=== PATIENT | female | born 1995 | race Caucasian/White ===

== ENCOUNTER 2017-05-03 16:57 | Emergency (ER) | payer OTHER ==
[~2017-05-03] VITALS: Ht 167.6 cm; Wt 65.0 kg
[2017-05-03 17:02] VITALS: BP 111/71; PULSE 87; RESP 14; TEMP 98.4; O2SAT 96
[2017-05-03] MEDS ORDERED: IBUPROFEN 800 MG TAB PO ONE (18:30)
--- NOTE | 2017-05-03 18:56 | PD ---
HPI Chief Complaint: Injury Time Seen by Provider: 18:48 Travel History International Travel<30 days: No Contact w/Intl Traveler<30days: No Traveled to known affect area: No History of Present Illness HPI 21-year-old female presents to emergency Department with complaint of right hand pain and bruising at the fifth metacarpal region or punching a wall yesterday. Reports paresthesias to the right fifth finger, but denies loss of sensation. Reports decreased range of motion of the right fifth finger at the MCP joint secondary to pain. Denies paresthesias, loss of sensation, decreased range of motion to all of the right hand fingers. Has taken Excedrin earlier today for symptom management. Symptoms are mild in severity. No known allergies. Has no other medical complaints. No other modifying factors or associated signs and symptoms. PFSH Social History Tobacco Use: No Allergies-Medications (Allergen,Severity, Reaction): Coded Allergies: No Known Allergies (Unverified , 05/03/17) Reported Meds & Prescriptions Reported Meds & Active Scripts Active Diclofenac Sodium DR (Diclofenac Sodium) 75 Mg Tabdr 75 Mg PO BID Review of Systems Except as stated in HPI: all other systems reviewed are Neg Physical Exam Narrative GENERAL: Well-nourished, well-developed female patient, in no acute distress SKIN: Warm and dry. HEAD: Atraumatic. Normocephalic. EYES: Pupils equal and round. No scleral icterus. No injection or drainage. ENT: Mucosa pink and moist. Airway patent. NECK: Trachea midline. CARDIOVASCULAR: Regular rate. RESPIRATORY: No accessory muscle use. GASTROINTESTINAL: Flat. MUSCULOSKELETAL: Right hand with tenderness on palpation over the fifth metacarpal region; ecchymosis noted to the ventral aspect of the fifth metacarpal area; mild edema noted; right fifth finger with limited range of motion at the MCP joint; sensory intact; fingers pink and warm; less than 3 second cap refill; no obvious deformities noted. No obvious deformities. No clubbing. No cyanosis. No edema. NEUROLOGICAL: Awake and alert. Oriented 3. No obvious cranial nerve deficits. Motor grossly within normal limits. Normal speech. PSYCHIATRIC: Appropriate mood and affect; insight and judgment normal. Data Data Last Documented VS Vital Signs Date Time Temp Pulse Resp B/P (MAP) Pulse Ox O2 Delivery O2 Flow Rate FiO2 05/03/17 19:22 05/03/17 17:02 98.4 87 14 96 Room Air Orders Orders Hand, Complete ([id number]) (05/03/17 18:23) Ibuprofen (Motrin) (05/03/17 18:30) Ed Discharge Order (05/03/17 19:12) MDM Medical Decision Making Medical Screen Exam Complete: Yes Emergency Medical Condition: Yes Medical Record Reviewed: Yes Differential Diagnosis Hand fracture, boxer's fracture, hand sprain Narrative Course 21-year-old female with right hand injury from punching a wall. Ibuprofen administered in the ER. Right hand x-ray ordered. 1899: Report given to Wali Gupta PA-C at change of shift. See his note for final patient disposition. Scripts Diclofenac Sodium DR (Diclofenac Sodium DR) 75 Mg Tabdr 75 MG PO BID, #20 TAB 0 Refills Prov: Jimmy Casillas MD 05/03/17 Zahida Haley May 03, 2017 18:55
--- NOTE | 2017-05-03 19:03 | RADRPT ---
EXAM DATE/TIME: 05/03/2017 18:44 [facility] COMPARISON: No previous studies available for comparison. INDICATIONS : Punched concrete wall last night bruising on lateral hand. MEDICAL HISTORY : None. SURGICAL HISTORY : None. ENCOUNTER: Initial ACUITY: 1 day PAIN SCORE: 0/10 LOCATION: Right hand FINDINGS: Three view examination of the right hand demonstrates no soft tissue swelling, dislocation, or fractu re. The carpal bones appear intact. The interphalangeal and metacarpophalangeal joints are intact. Bony mineralization is normal. CONCLUSION: Normal examination for a patient of this age. Agustin Jose MD on May 03, 2017 at 19:01 Board Certified Radiologist. This report was verified electronically.
--- NOTE | 2017-05-03 19:10 | PD ---
Physical Exam Date Seen by Provider: May 03, 2017 Time Seen by Provider: 19:08 Data Data Last Documented VS Vital Signs Date Time Temp Pulse Resp B/P (MAP) Pulse Ox O2 Delivery O2 Flow Rate FiO2 05/03/17 17:02 98.4 87 14 111/71 (84) 96 Room Air Orders Orders Hand, Complete ([id number]) (05/03/17 18:23) Ibuprofen (Motrin) (05/03/17 18:30) MDM Medical Record Reviewed: Yes Supervised Visit with MANDY: No Interpretation(s) Plan: Negative for acute fracture. No dislocation. No soft tissue swelling. Differential Diagnosis MDM: High Differential diagnoses: Fracture, sprain, strain, dislocation, contusion, neurovascular injury Narrative Course X-rays negative for bony injury. This is hand contusion Diagnosis Primary Impression: Contusion of right hand Qualified Codes: S60.221A - Contusion of right hand, initial encounter Patient Instructions: General Instructions Additional Instruction: Rest. Elevation. Ice. Medications as directed. Follow-up with a medical doctor in one week. Return to the ER for problems. Med/Other Pt SpecificInfo: Prescription(s) given Disposition: 01 DISCHARGE HOME Condition: Stable Wali Gupta May 03, 2017 19:10
[2017-05-03] MEDS ORDERED: DICL75TA PO (19:11)
== END 2017-05-03 19:23 | disposition home or self-care (01) ==
LOC: NEPK 16:57
DX: S60.221A Contusion of right hand, initial encounter (principal); W22.01XA Walked into wall, initial encounter
CPT/HCPCS: 73130; 99283

== ENCOUNTER 2017-07-02 09:41 | Emergency (ER) | payer OTHER ==
[~2017-07-02] VITALS: Ht 167.6 cm; Wt 61.2 kg
[~2017-07-02 09:41] MED LIST: DICL75TA PO
[2017-07-02 10:13] VITALS: BP 132/63; PULSE 82; RESP 16; TEMP 98.3; O2SAT 97
[2017-07-02] MEDS ORDERED: AUGM875T3 PO (10:56)
[2017-07-02] MEDS ORDERED: ERYTOIN10 EACH EYE (10:56)
--- NOTE | 2017-07-02 10:56 | PD ---
HPI Chief Complaint: Skin Problem Time Seen by Provider: 10:47 Travel History International Travel<30 days: No Contact w/Intl Traveler<30days: No Traveled to known affect area: No History of Present Illness HPI 22 -year-old female with bilateral upper eyelid pain, swelling, redness 5 days. She denies visual changes or eye pain. She reports she used a new mascara about a week ago. Symptoms started shortly after. She now has crusting around the lashes. Symptom severity is moderate. No alleviating factors. PFSH Past Medical History Medical History: Denies Significant Hx Depression: Yes Tetanus Vaccination: < 5 Years Influenza Vaccination: No ?: Not LMP: 06/09/17 Past Surgical History Surgical History: No Previous Surgery Social History Alcohol Use: Yes (2-3 X WEEK) Tobacco Use: Yes (1 PPD) Substance Use: No Allergies-Medications (Allergen,Severity, Reaction): Coded Allergies: No Known Allergies (Unverified Adverse Reaction, Unknown, 07/02/17) Reported Meds & Prescriptions Reported Meds & Active Scripts Active No Active Prescriptions or Reported Medications Review of Systems Except as stated in HPI: all other systems reviewed are Neg Physical Exam Narrative GENERAL: Alert female in no distress SKIN: Warm and dry. HEAD: Normocephalic. EYES: No scleral icterus. No injection or drainage. She has bilateral upper lid erythema, swelling localized to the lash margins. There is crusting noted at the base of the lashes. PERRLA. EOMs intact. NECK: Supple, trachea midline. No JVD or lymphadenopathy. CARDIOVASCULAR: Regular rate and rhythm without murmurs, gallops, or rubs. RESPIRATORY: Breath sounds equal bilaterally. No accessory muscle use. Data Data Last Documented VS Vital Signs Date Time Temp Pulse Resp B/P (MAP) Pulse Ox O2 Delivery O2 Flow Rate FiO2 07/02/17 10:13 98.3 82 16 132/63 (86) 97 MDM Medical Decision Making Medical Screen Exam Complete: Yes Emergency Medical Condition: Yes Differential Diagnosis Blepharitis, conjunctivitis, periorbital cellulitis Narrative Course 22-year-old female here with bilateral upper mid erythema, swelling crusting eyelashes approximately 5 days. No ocular involvement. She has normal visual acuity. She has blepharitis Diagnosis Primary Impression: Blepharitis Qualified Codes: H01.001 - Unspecified blepharitis right upper eyelid; H01.004 - Unspecified blepharitis left upper eyelid Referrals: Primary Care Physician Scripts Amoxicillin-Clavulanate (Augmentin) 875-125 Mg Tab 1 TAB PO BID for Infection, #14 TAB 0 Refills Prov: Jasmina Salazar 07/02/17 Erythromycin Opth Oint (Erythromycin Opth Oint) 5 Mg/Gm Oint 1 APPLIC EACH EYE BID for Infection, #1 TUBE 0 Refills Prov: Jasmina Salazar 07/02/17 Disposition: 01 DISCHARGE HOME Condition: Stable Jasmina Salazar Jul 02, 2017 10:56
== END 2017-07-02 11:02 | disposition home or self-care (01) ==
LOC: PHED 09:41 → PHEFT 11:02
DX: H01.001 Unspecified blepharitis right upper eyelid (principal); H01.004 Unspecified blepharitis left upper eyelid; F17.200 Nicotine dependence, unspecified, uncomplicated; Z72.89 Other problems related to lifestyle
CPT/HCPCS: 99284

== ENCOUNTER 2017-08-27 16:08 | Emergency (ER) | payer OTHER ==
[~2017-08-27] VITALS: Ht 167.6 cm; Wt 59.6 kg
[~2017-08-27 16:08] MED LIST changes: +AUGM875T3 PO; -DICL75TA PO; +ERYTOIN10 EACH EYE
[2017-08-27 16:38] VITALS: BP 111/59; PULSE 80; RESP 16; TEMP 98.5; O2SAT 99
--- NOTE | 2017-08-27 16:57 | PD ---
HPI Chief Complaint: Anxiety Time Seen by Provider: 16:42 Travel History International Travel<30 days: No Contact w/Intl Traveler<30days: No Traveled to known affect area: No History of Present Illness HPI The patient is a 22-year-old female who presents to the emergency department for chest pain and anxiety. The patient states she's had several family members within the last several months, she lost a sister several weeks ago and a drunk driving accident. The patient states her last several days she's had intermittent substernal chest pain that feels like a "knot" in her chest. The patient's chest pain started today at 11:45 AM, his been constant, nonradiating, associated with mild shortness of breath. The patient does have a history of anxiety and states she is going to go to [facility] on Tuesday to go back on antidepressants. She does have a history of substance abuse problems in the past with benzodiazepines, however, states clonidine did help with her anxiety in the past. She denies any nausea, vomiting, or diaphoresis. She denies any recent hospitalizations, travel, surgeries, or history of pulmonary embolus a more DVT. She denies any history of blood clotting disorders. She does have a history tobacco use, denies any known history of hypertension, hyperlipidemia, diabetes, coronary artery disease , or early family history for heart disease. [facility] Past Medical History Depression: Yes ?: Not LMP: 08/15/17 Social History Alcohol Use: Yes (2-3 X WEEK) Tobacco Use: Yes (1 PPD) Substance Use: No Allergies-Medications (Allergen,Severity, Reaction): Coded Allergies: No Known Allergies (Unverified Adverse Reaction, Unknown, 08/27/17) Reported Meds & Prescriptions Reported Meds & Active Scripts Active No Active Prescriptions or Reported Medications Review of Systems Except as stated in HPI: all other systems reviewed are Neg General / Constitutional: No: Fever HENT: No: Lightheadedness Cardiovascular: Positive: Chest Pain or Discomfort, No: Diaphoresis, Dyspnea on exertion Respiratory: Positive: Shortness of Breath, No: Pleuritic Pain Gastrointestinal: No: Nausea, Vomiting Musculoskeletal: No: Edema Psychiatric: Positive: Anxiety Physical Exam Narrative GENERAL: Awake, alert, pleasant 22-year-old female who appears her stated age and is in no acute respiratory distress. Slightly anxious. SKIN: Focused skin assessment warm/dry. HEAD: Atraumatic. Normocephalic. EYES: Pupils equal and round. No scleral icterus. No injection or drainage. ENT: No nasal bleeding or discharge. Mucous membranes pink and moist. NECK: Trachea midline. No JVD. CARDIOVASCULAR: Regular rate and rhythm. No murmur appreciated. Heart rate in the 80s. RESPIRATORY: No accessory muscle use. Clear to auscultation. Breath sounds equal bilaterally. GASTROINTESTINAL: Abdomen soft, non-tender, nondistended. No rebound tenderness. MUSCULOSKELETAL: No obvious deformities. No clubbing. No cyanosis. No edema. NEUROLOGICAL: Awake and alert. No obvious cranial nerve deficits. Motor grossly within normal limits. Normal speech. Nonfocal. PSYCHIATRIC: Slightly anxious. Appropriate mood and affect; insight and judgment normal. Data Data Last Documented VS Vital Signs Date Time Temp Pulse Resp B/P (MAP) Pulse Ox O2 Delivery O2 Flow Rate FiO2 08/27/17 17:50 67 17 108/59 (75) 100 Room Air 08/27/17 16:38 98.5 Orders Orders Electrocardiogram (08/27/17 16:50) Ckmb (Isoenzyme) Profile (08/27/17 16:50) Complete Blood Count With Diff (08/27/17 16:50) Comprehensive Metabolic Panel (08/27/17 16:50) Magnesium (Mg) (08/27/17 16:50) Troponin I (08/27/17 16:50) Ecg Monitoring (08/27/17 16:50) Iv Access Insert/Monitor (08/27/17 16:50) Oximetry (08/27/17 16:50) Oxygen Administration (08/27/17 16:50) Sodium Chloride 0.9% Flush (Ns Flush) (08/27/17 17:00) Sodium Chlorid 0.9% 500 Ml Inj (Ns 500 M (08/27/17 17:00) Clonidine (Catapres) (08/27/17 17:00) CKMB (08/27/17 16:57) CKMB% (08/27/17 16:57) Labs Laboratory Tests Test 08/27/17 16:57 White Blood Count 7.1 TH/MM3 Red Blood Count 4.43 MIL/MM3 Hemoglobin 14.1 GM/DL Hematocrit 40.7 % Mean Corpuscular Volume 91.8 FL Mean Corpuscular Hemoglobin 31.8 PG Mean Corpuscular Hemoglobin Concent 34.7 % Red Cell Distribution Width 12.4 % Platelet Count 382 TH/MM3 Mean Platelet Volume 7.6 FL Neutrophils (%) (Auto) 59.5 % Lymphocytes (%) (Auto) 34.3 % Monocytes (%) (Auto) 5.0 % Eosinophils (%) (Auto) 0.6 % Basophils (%) (Auto) 0.6 % Neutrophils # (Auto) 4.3 TH/MM3 Lymphocytes # (Auto) 2.4 TH/MM3 Monocytes # (Auto) 0.4 TH/MM3 Eosinophils # (Auto) 0.0 TH/MM3 Basophils # (Auto) 0.0 TH/MM3 CBC Comment DIFF FINAL Differential Comment Blood Urea Nitrogen 8 MG/DL Creatinine 0.66 MG/DL Random Glucose 73 MG/DL Total Protein 7.1 GM/DL Albumin 3.9 GM/DL Calcium Level 9.0 MG/DL Magnesium Level 2.1 MG/DL Alkaline Phosphatase 99 U/L Aspartate Amino Transf (AST/SGOT) 12 U/L Alanine Aminotransferase (ALT/SGPT) 14 U/L Total Bilirubin 0.8 MG/DL Sodium Level 139 MEQ/L Potassium Level 3.6 MEQ/L Chloride Level 106 MEQ/L Carbon Dioxide Level 28.1 MEQ/L Anion Gap 5 MEQ/L Estimat Glomerular Filtration Rate 111 ML/MIN Total Creatine Kinase 105 U/L Troponin I LESS THAN 0.02 NG/ML MDM Medical Decision Making Medical Screen Exam Complete: Yes Emergency Medical Condition: Yes Medical Record Reviewed: Yes Interpretation(s) EKG reveals normal sinus rhythm with a rate of 77. No ischemic changes or ectopy noted. Laboratory Tests Test 08/27/17 16:57 White Blood Count 7.1 TH/MM3 Red Blood Count 4.43 MIL/MM3 Hemoglobin 14.1 GM/DL Hematocrit 40.7 % Mean Corpuscular Volume 91.8 FL Mean Corpuscular Hemoglobin 31.8 PG Mean Corpuscular Hemoglobin Concent 34.7 % Red Cell Distribution Width 12.4 % Platelet Count 382 TH/MM3 Mean Platelet Volume 7.6 FL Neutrophils (%) (Auto) 59.5 % Lymphocytes (%) (Auto) 34.3 % Monocytes (%) (Auto) 5.0 % Eosinophils (%) (Auto) 0.6 % Basophils (%) (Auto) 0.6 % Neutrophils # (Auto) 4.3 TH/MM3 Lymphocytes # (Auto) 2.4 TH/MM3 Monocytes # (Auto) 0.4 TH/MM3 Eosinophils # (Auto) 0.0 TH/MM3 Basophils # (Auto) 0.0 TH/MM3 CBC Comment DIFF FINAL Differential Comment Blood Urea Nitrogen 8 MG/DL Creatinine 0.66 MG/DL Random Glucose 73 MG/DL Total Protein 7.1 GM/DL Albumin 3.9 GM/DL Calcium Level 9.0 MG/DL Magnesium Level 2.1 MG/DL Alkaline Phosphatase 99 U/L Aspartate Amino Transf (AST/SGOT) 12 U/L Alanine Aminotransferase (ALT/SGPT) 14 U/L Total Bilirubin 0.8 MG/DL Sodium Level 139 MEQ/L Potassium Level 3.6 MEQ/L Chloride Level 106 MEQ/L Carbon Dioxide Level 28.1 MEQ/L Anion Gap 5 MEQ/L Estimat Glomerular Filtration Rate 111 ML/MIN Total Creatine Kinase 105 U/L Troponin I LESS THAN 0.02 NG/ML Differential Diagnosis Differential diagnosis includes ACS, STEMI, pulmonary most, GERD, esophageal spasm, pulmonary embolism, somatization, anxiety disorder. Narrative Course IV was established, labs are drawn and sent, and the patient was placed on cardiac telemetry monitoring and continuous pulse oximetry monitoring. EKG was ordered and interpreted. The patient's heart rate was less than 100 and the patient's oxygen saturation was on her percent on room air, she has no risk factors for pulmonary embolism or DVT. I doubt pulmonary embolism. Troponin/ CPK were sent to lab to evaluate for possible pericarditis/myocarditis. The patient states clonidine as helped with her anxiety in the past, she was administered clonidine 0.1 mg orally. CPK was unremarkable at 105. Troponin is negative. The patient was reassessed at 5:50 PM, her symptoms had improved. Patient has atypical chest pain, history of similar symptoms in the past with anxiety. I will write for when necessary clonidine as needed, she will follow- up is to [place] on Tuesday. Return if symptoms worsen or progress. Diagnosis Primary Impression: Atypical chest pain Additional Impression: Anxiety Patient Instructions: General Instructions Additional Instructions: Please provide the patient a copy of her lab results at discharge. Clonidine as needed. Follow-up at [facility]. Return if symptoms worsen or progress. Med/Other Pt SpecificInfo: Prescription(s) given Scripts Clonidine (Clonidine) 0.1 Mg Tab 0.1 MG PO Q8HR Y for ANXIETY, #10 TAB 0 Refills Prov: Flynn Brambila MD 08/27/17 Disposition: 01 DISCHARGE HOME Condition: Stable Flynn Brambila MD Aug 27, 2017 16:57
[2017-08-27] MEDS ORDERED: SODIUM CHLORIDE 0.9% FLUSH 10 ML FLUSH IVF PRN (17:00)
[2017-08-27] MEDS ORDERED: cloNIDine HCL 0.1 MG TAB PO ONE (17:00)
[2017-08-27] MEDS ORDERED: SODIUM CHLORID 0.9% 500 ML INJ 500 ML IV ONE (17:00)
[2017-08-27 17:25] VITALS: O2SAT 99
[2017-08-27 17:25] LABS: AUTOMATED NEUTROPHIL # 4.3 TH/MM3 (1.8-7.7); BASOPHIL % 0.6 % (0.0-2.0); EOSINOPHIL % 0.6 % (0.0-4.0); HEMATOCRIT 40.7 % (35.0-46.0); HEMOGLOBIN 14.1 GM/DL (11.6-15.3); LYMPH % 34.3 % (9.0-44.0); LYMPHOCYTE # 2.4 TH/MM3 (1.0-4.8); MEAN CELL VOLUME 91.8 FL (80.0-100.0); MEAN CORPUSCULAR HEMOGLOBIN 31.8 PG (27.0-34.0); MEAN CORPUSCULAR HGB CONC 34.7 % (32.0-36.0); MEAN PLATELET VOLUME 7.6 FL (7.0-11.0); MONOCYTE # 0.4 TH/MM3 (0-0.9); NEUT % 59.5 % (16.0-70.0); PLATELET COUNT 382 TH/MM3 (150-450); RED BLOOD COUNT 4.43 MIL/MM3 (4.00-5.30); RED CELL DISTRIBUTION WIDTH 12.4 % (11.6-17.2); WHITE BLOOD COUNT 7.1 TH/MM3 (4.0-11.0)
[2017-08-27 17:36] LABS: CHLORIDE 106 MEQ/L (98-107); SODIUM (NA) 139 MEQ/L (136-145)
[2017-08-27 17:40] LABS: ALBUMIN 3.9 GM/DL (3.4-5.0); BICARBONATE 28.1 MEQ/L (21.0-32.0); BLOOD UREA NITROGEN 8 MG/DL (7-18); GLUCOSE,RANDOM 73 MG/DL (74-106); MAGNESIUM 2.1 MG/DL (1.5-2.5)
[2017-08-27 17:43] LABS: ALT (GPT) 14 U/L (10-53); AST (GOT) 12 U/L (15-37); CREATININE 0.66 MG/DL (0.50-1.00); GLOMERULAR FILTRATION RATE 111 ML/MIN (>89)
[2017-08-27 17:45] LABS: TOTAL BILIRUBIN ADULT 0.8 MG/DL (0.2-1.0); TOTAL PROTEIN 7.1 GM/DL (6.4-8.2)
[2017-08-27 17:46] LABS: ALKALINE PHOSPHATASE 99 U/L (45-117)
[2017-08-27 17:49] LABS: TROPONIN I LESS THAN 0.02 NG/ML (0.02-0.05)
[2017-08-27 17:50] VITALS: BP 108/59; PULSE 67; RESP 17; O2SAT 100
[2017-08-27] MEDS ORDERED: CLON0.1T PO (17:55)
--- NOTE | 2017-08-28 13:18 | EKG ---
Date Performed: 08/27/2017 Time Performed: 17:00:42 PTAGE: 22 years EKG: Sinus rhythm NORMAL ECG NO PREVIOUS TRACING DOCTOR: Erasmo Amaya Interpretating Date/Time 08/28/2017 13:16:30
== END 2017-08-27 18:19 | disposition home or self-care (01) ==
LOC: PHED 16:08
DX: R07.89 Other chest pain (principal); F41.9 Anxiety disorder, unspecified; R06.02 Shortness of breath; Z72.0 Tobacco use
CPT/HCPCS: 80053; 82550; 82552; 83735; 84484; 85025; 93005; 99284; J7040

== ENCOUNTER 2017-10-02 20:18 | Emergency (ER) | payer OTHER ==
[~2017-10-02] VITALS: Ht 167.6 cm; Wt 56.5 kg
[~2017-10-02 20:18] MED LIST changes: -AUGM875T3 PO; +CLON0.1T PO; -ERYTOIN10 EACH EYE
[2017-10-02 20:21] VITALS: BP 115/66; PULSE 86; RESP 20; TEMP 98.4; O2SAT 98
[2017-10-02] MEDS ORDERED: PRENTAB7 PO (20:56)
--- NOTE | 2017-10-02 21:04 | PD ---
HPI Chief Complaint: Flank/Kidney Pain Time Seen by Provider: 20:48 Travel History International Travel<30 days: No Contact w/Intl Traveler<30days: No Traveled to known affect area: No History of Present Illness HPI 22-year-old female , LMP 08/14/17, has not yet received care, here for evaluation of with abdominal cramping. Patient reports occasional right lower quadrant and right flank cramping. She denies vaginal bleeding. No urinary symptoms. She has become nauseous and had one episode of vomiting during this . No fevers. PFSH Past Medical History Bipolar Disorder: Yes Anxiety: Yes Depression: Yes Tetanus Vaccination: Unknown Influenza Vaccination: No ?: LMP: 08/14/17 : 1 Past Surgical History Gynecologic Surgery: Yes (CONE BIOPSY: CERVICAL DYSPLASIA) Social History Alcohol Use: No (QUIT JUN 2017) Tobacco Use: Yes (07/26 PPD) Substance Use: No Allergies-Medications (Allergen,Severity, Reaction): Coded Allergies: No Known Allergies (Unverified Adverse Reaction, Unknown, 10/02/17) Reported Meds & Prescriptions Reported Meds & Active Scripts Active Reported Vitamins Tablet (Pnv No.95/Ferrous Fum/Folic AC) 28 Mg Iron-800 Mcg Tablet 1 Cap PO DAILY Review of Systems Except as stated in HPI: all other systems reviewed are Neg Physical Exam Narrative GENERAL: Well-developed, well-nourished, comfortable, no apparent distress. SKIN: Focused skin assessment warm/dry. No rash. HEAD: Atraumatic. Normocephalic. EYES: Pupils equal and round. No scleral icterus. No injection or drainage. ENT: Mucous membranes pink and moist. NECK: Trachea midline. No JVD. CARDIOVASCULAR: Regular rate and rhythm. RESPIRATORY: No accessory muscle use. Clear to auscultation. Breath sounds equal bilaterally. GASTROINTESTINAL: Abdomen soft, non-tender, nondistended. [employer]: Exam performed in the presence of a female nurse. Normal external genitalia. Normal-appearing cervix. Closed office. Scant/physiologic vaginal discharge. No bleeding. MUSCULOSKELETAL: No obvious deformities. No clubbing. No cyanosis. No edema. No CVA tenderness. NEUROLOGICAL: Awake and alert. No obvious cranial nerve deficits. Motor grossly within normal limits. Normal speech. PSYCHIATRIC: Appropriate mood and affect; insight and judgment normal. Data Data Last Documented VS Vital Signs Date Time Temp Pulse Resp B/P (MAP) Pulse Ox O2 Delivery O2 Flow Rate FiO2 10/02/17 20:21 98.4 86 20 115/66 (82) 98 Orders Orders Beta Hcg (Quant/Titer) (10/02/17 20:54) Complete Blood Count With Diff (10/02/17 20:54) Basic Metabolic Panel (Bmp) (10/02/17 20:54) Us Pelvis (Ques Preg/Ectopic) (10/02/17 ) Urinalysis - C+S If Indicated (10/02/17 20:54) Ed Urine Pregnancytest Poc (10/02/17 20:54) Gc And Chlamydia Pcr (10/02/17 21:41) Wet Prep Profile (10/02/17 21:41) Labs Laboratory Tests Test 10/02/17 20:48 10/02/17 21:05 10/02/17 21:45 Urine Collection Type CLEAN CATCH Urine Color YELLOW Urine Turbidity SL CLOUDY Urine pH 7.0 Urine Specific [place] 1.010 Urine Protein NEG mg/dL Urine Glucose (UA) NEG mg/dL Urine Ketones NEG mg/dL Urine Occult Blood NEG Urine Nitrite NEG Urine Bilirubin NEG Urine Urobilinogen 0.2 MG/DL Urine Leukocyte Esterase NEG Urine WBC 0-2 /hpf Urine Squamous Epithelial Cells > 8 /hpf Urine Amorphous Sediment FEW Microscopic Urinalysis Comment CULT NOT INDICATED White Blood Count 9.1 TH/MM3 Red Blood Count 4.01 MIL/MM3 Hemoglobin 12.8 GM/DL Hematocrit 36.6 % Mean Corpuscular Volume 91.4 FL Mean Corpuscular Hemoglobin 31.9 PG Mean Corpuscular Hemoglobin Concent 34.9 % Red Cell Distribution Width 11.9 % Platelet Count 308 TH/MM3 Mean Platelet Volume 7.5 FL Neutrophils (%) (Auto) 66.6 % Lymphocytes (%) (Auto) 27.2 % Monocytes (%) (Auto) 5.7 % Eosinophils (%) (Auto) 0.2 % Basophils (%) (Auto) 0.3 % Neutrophils # (Auto) 6.1 TH/MM3 Lymphocytes # (Auto) 2.5 TH/MM3 Monocytes # (Auto) 0.5 TH/MM3 Eosinophils # (Auto) 0.0 TH/MM3 Basophils # (Auto) 0.0 TH/MM3 CBC Comment DIFF FINAL Differential Comment Blood Urea Nitrogen 11 MG/DL Creatinine 0.52 MG/DL Random Glucose 80 MG/DL Calcium Level 8.4 MG/DL Sodium Level 136 MEQ/L Potassium Level 3.4 MEQ/L Chloride Level 103 MEQ/L Carbon Dioxide Level 24.4 MEQ/L Anion Gap 9 MEQ/L Estimat Glomerular Filtration Rate 146 ML/MIN Human Chorionic Gonadotropin, Quant 89998 MIU/ML Clue Cells (Wet Prep) NONE SEEN Vaginal Trichomonas (Wet Prep) NONE SEEN Vaginal Yeast (Wet Prep) NONE SEEN MDM Medical Decision Making Medical Screen Exam Complete: Yes Emergency Medical Condition: Yes Differential Diagnosis , ectopic , UTI, pyelonephritis, nephrolithiasis, cystitis, acute intra-abdominal/surgical process unlikely Narrative Course Vital signs show heart rate 86, blood pressure 115/66, pulse ox 98% on room air , oral temperature 98.4F. CBC is unremarkable. BMP is essentially unremarkable. UA is within normal limits, not suggestive of UTI, no bacteriuria. Wet prep is negative for yeast, negative for clue cells, negative for trichomonas. Beta-hCG is 62,800. Pelvic ultrasound: At approximately 11:00 PM at the end of my shift the patient was signed out to Dr. Jones to follow-up with pelvic/ ultrasound and disposition. Diagnosis Primary Impression: Intrauterine Referrals: [facility] 1 week Additional Instructions: Follow-up with an [employer] physician this week. Return to the emergency department for worsening symptoms or any other concerns. Disposition: 01 DISCHARGE HOME Condition: Stable Carlos Manuel Clark MD Oct 02, 2017 21:04
[2017-10-02 21:16] LABS: AUTOMATED NEUTROPHIL # 6.1 TH/MM3 (1.8-7.7); BASOPHIL % 0.3 % (0.0-2.0); EOSINOPHIL % 0.2 % (0.0-4.0); HEMATOCRIT 36.6 % (35.0-46.0); HEMOGLOBIN 12.8 GM/DL (11.6-15.3); LYMPH % 27.2 % (9.0-44.0); LYMPHOCYTE # 2.5 TH/MM3 (1.0-4.8); MEAN CELL VOLUME 91.4 FL (80.0-100.0); MEAN CORPUSCULAR HEMOGLOBIN 31.9 PG (27.0-34.0); MEAN CORPUSCULAR HGB CONC 34.9 % (32.0-36.0); MEAN PLATELET VOLUME 7.5 FL (7.0-11.0); MONO % 5.7 % (0.0-8.0); MONOCYTE # 0.5 TH/MM3 (0-0.9); NEUT % 66.6 % (16.0-70.0); PLATELET COUNT 308 TH/MM3 (150-450); RED BLOOD COUNT 4.01 MIL/MM3 (4.00-5.30); RED CELL DISTRIBUTION WIDTH 11.9 % (11.6-17.2); WHITE BLOOD COUNT 9.1 TH/MM3 (4.0-11.0)
[2017-10-02 21:17] LABS: BILIRUBIN, URINE NEG (NEG); BLOOD, URINE NEG (NEG); GLUCOSE,URINE NEG (NEG); KETONE, URINE NEG (NEG); NITRITE,URINE NEG (NEG); URINE COLOR YELLOW (YELLW/STRAW); URINE LEUKOCYTE ESTERASE NEG (NEG)
[2017-10-02 21:23] LABS: AMORPHOUS SEDIMENT, URINE FEW; SQUAMOUS EPITHELIAL CELL URINE > 8 /hpf (0-5)
[2017-10-02 21:24] LABS: WBC, URINE 0-2 /hpf (0-5)
[2017-10-02 21:27] LABS: CALCIUM 8.4 MG/DL (8.5-10.1)
[2017-10-02 21:28] LABS: BICARBONATE 24.4 MEQ/L (21.0-32.0)
[2017-10-02 21:31] LABS: CREATININE 0.52 MG/DL (0.50-1.00)
[2017-10-02 23:28] VITALS: BP 107/59; PULSE 74; RESP 16; O2SAT 100
--- NOTE | 2017-10-02 23:38 | RADRPT ---
EXAM DATE/TIME: 10/02/2017 22:51 [facility] COMPARISON: No previous studies available for comparison. INDICATIONS : Pelvic pain with . LAB(S): Beta-hC MEDICAL HISTORY : . Bipolar disorder. Depression. Anxiety. SURGICAL HISTORY : Cervical cone biopsy. ENCOUNTER: Initial ACUITY: 1 day PAIN SCORE: 3/10 LOCATION: Bilateral pelvis MEASUREMENTS: UTERUS: 8.5 x 5.9 x 4.3 cm ENDOMETRIAL STRIPE: >20 mm RIGHT OVARY: 2.0 x 1.3 x 1.1 cm LEFT OVARY: 1.7 x 1.2 x 0.8 cm FREE FLUID: No CROWN RUMP LENGTH: 0.8 cm = 6 WKS 5 DAYS FHR: 120 BPM FINDINGS: UTERUS: Single intrauterine gestation is observed. Well-formed gestational sac and yolk sac observed. Strawn-r ump length measures are 0.76 cm which equals 6 weeks 5 days gestational age. heart rate is 120 beats per minute. A small subchorionic hemorrhage is observed. This measures less than [address] dimension. RIGHT OVARY: Ovary contains no mass or significant cystic lesion. LEFT OVARY: Ovary contains no mass or significant cystic lesion. MISCELLANEOUS: No free fluid. CONCLUSION: 1. Single intrauterine gestation. Age by crown-rump length is 6 weeks 5 days. heart rate 120 be ats per minute. 2. Probable tiny subchorionic hemorrhage. Cristobal Segal Jr., MD on October 02, 2017 at 23:33 Board Certified Radiologist. This report was verified electronically.
--- NOTE | 2017-10-02 23:56 | PD ---
Physical Exam Date Seen by Provider: Oct 02, 2017 Time Seen by Provider: 23:00 Narrative Patient signed out to me at [address] Clark, awaiting ultrasound. Disposition based on ultrasound. Laboratory Tests Test 10/02/17 20:48 10/02/17 21:05 10/02/17 21:45 Urine Squamous Epithelial Cells > 8 /hpf (0-5) Calcium Level 8.4 MG/DL (8.5-10.1) Potassium Level 3.4 MEQ/L (3.5-5.1) Human Chorionic Gonadotropin, Quant 23627 MIU/ML (0-5) Last 24 hours Impressions Pelvis Ultrasound 10/02/17 0000 Signed Impressions: Service Date/Time: Monday, October 02, 2017 22:51 - CONCLUSION: 1. Single intrauterine gestation. Age by crown-rump length is 6 weeks 5 days. heart rate 120 beats per minute. 2. Probable tiny subchorionic hemorrhage. Cristobal Segal Jr., MD Ultrasound shows IUP with good heart tones. At this point, plan would be to release her with follow-up to [facility] as previously discussed with Dr. Clark. Return for any worsening in pain, bleeding, and as needed. Plan has been discussed with the patient and she states understanding. Data Data Last Documented VS Vital Signs Date Time Temp Pulse Resp B/P (MAP) Pulse Ox O2 Delivery O2 Flow Rate FiO2 10/02/17 23:28 74 16 107/59 (75) 100 Room Air 10/02/17 20:21 98.4 Orders Orders Beta Hcg (Quant/Titer) (10/02/17 20:54) Complete Blood Count With Diff (10/02/17 20:54) Basic Metabolic Panel (Bmp) (10/02/17 20:54) Us Pelvis (Ques Preg/Ectopic) (10/02/17 ) Urinalysis - C+S If Indicated (10/02/17 20:54) Ed Urine Pregnancytest Poc (10/02/17 20:54) Gc And Chlamydia Pcr (10/02/17 21:41) Wet Prep Profile (10/02/17 21:41) Ed Discharge Order (10/02/17 23:53) Labs Laboratory Tests Test 10/02/17 20:48 10/02/17 21:05 10/02/17 21:45 Urine Collection Type CLEAN CATCH Urine Color YELLOW Urine Turbidity SL CLOUDY Urine pH 7.0 Urine Specific [place] 1.010 Urine Protein NEG mg/dL Urine Glucose (UA) NEG mg/dL Urine Ketones NEG mg/dL Urine Occult Blood NEG Urine Nitrite NEG Urine Bilirubin NEG Urine Urobilinogen 0.2 MG/DL Urine Leukocyte Esterase NEG Urine WBC 0-2 /hpf Urine Squamous Epithelial Cells > 8 /hpf Urine Amorphous Sediment FEW Microscopic Urinalysis Comment CULT NOT INDICATED White Blood Count 9.1 TH/MM3 Red Blood Count 4.01 MIL/MM3 Hemoglobin 12.8 GM/DL Hematocrit 36.6 % Mean Corpuscular Volume 91.4 FL Mean Corpuscular Hemoglobin 31.9 PG Mean Corpuscular Hemoglobin Concent 34.9 % Red Cell Distribution Width 11.9 % Platelet Count 308 TH/MM3 Mean Platelet Volume 7.5 FL Neutrophils (%) (Auto) 66.6 % Lymphocytes (%) (Auto) 27.2 % Monocytes (%) (Auto) 5.7 % Eosinophils (%) (Auto) 0.2 % Basophils (%) (Auto) 0.3 % Neutrophils # (Auto) 6.1 TH/MM3 Lymphocytes # (Auto) 2.5 TH/MM3 Monocytes # (Auto) 0.5 TH/MM3 Eosinophils # (Auto) 0.0 TH/MM3 Basophils # (Auto) 0.0 TH/MM3 CBC Comment DIFF FINAL Differential Comment Blood Urea Nitrogen 11 MG/DL Creatinine 0.52 MG/DL Random Glucose 80 MG/DL Calcium Level 8.4 MG/DL Sodium Level 136 MEQ/L Potassium Level 3.4 MEQ/L Chloride Level 103 MEQ/L Carbon Dioxide Level 24.4 MEQ/L Anion Gap 9 MEQ/L Estimat Glomerular Filtration Rate 146 ML/MIN Human Chorionic Gonadotropin, Quant 86167 MIU/ML Clue Cells (Wet Prep) NONE SEEN Vaginal Trichomonas (Wet Prep) NONE SEEN Vaginal Yeast (Wet Prep) NONE SEEN MDM Medical Record Reviewed: Yes Supervised Visit with MANDY: No Diagnosis Primary Impression: Intrauterine Referrals: [facility] 1 week Additional Instruction: Follow-up with an [facility] physician this week. Return to the emergency department for worsening symptoms or any other concerns. Disposition: 01 DISCHARGE HOME Condition: Stable SoonNicol durant MD Oct 02, 2017 23:56
== END 2017-10-03 00:05 | disposition home or self-care (01) ==
LOC: PHED 20:18
DX: O26.891 Other specified pregnancy related conditions, first trimester (principal); R10.31 Right lower quadrant pain; R11.0 Nausea; Z72.0 Tobacco use
CPT/HCPCS: 76700; 80048; 81001; 84702; 84703; 85025; 87210; 87491; 87591

== ENCOUNTER 2017-11-27 20:51 | Emergency (ER) | payer BC, MEDICAID ==
[~2017-11-27 20:51] MED LIST changes: -CLON0.1T PO; +PRENTAB7 PO
[2017-11-27 21:02] VITALS: BP 113/77; PULSE 105; RESP 18; TEMP 98.4; O2SAT 97
[2017-11-27 21:34] VITALS: PULSE 71
[2017-11-27] MEDS ORDERED: SODIUM CHLOR 0.9% 1000 ML INJ 1,000 ML IV ONE (21:36)
--- NOTE | 2017-11-27 21:53 | PD ---
HPI Chief Complaint: Sales Team Manager Problem/Complaint Time Seen by Provider: 21:36 Travel History International Travel<30 days: No Contact w/Intl Traveler<30days: No Traveled to known affect area: No History of Present Illness HPI The patient is a 22 year old female at 15 weeks gestation who presents to the [facility] emergency department with a history of lower abdominal cramping that she reports has been more persistent over the last 2 days. She reports that she has a follow-up appointment with her [facility] scheduled for , however she became concerned after reading on the Internet that this could be related to a miscarriage. She reports that she has had an initial ultrasound that revealed heart activity. She denies having any vaginal bleeding. She reports that she has had vaginal discharge that is been clear to white in color, however it was slightly darker yesterday. She does not know her blood type. On review of systems otherwise, the patient denies having any known recent fevers, cough or congestion,neck pain, chest pain, shortness of breath,vomiting, diarrhea, urinary symptoms, or neurologic symptoms. [facility] Past Medical History Narrative Medical The patient's past medical history is significant for cervical dysplasia status post cone procedure, history of anxiety disorder, bipolar disorder. Bipolar Disorder: Yes Anxiety: Yes Depression: Yes Diminished Hearing: No Immunizations Current: Yes ?: : 1 Past Surgical History Narrative Surgical The patient's past surgical history is significant for a cone biopsy for cervical dysplasia Gynecologic Surgery: Yes (CONE BIOPSY: CERVICAL DYSPLASIA) Social History Alcohol Use: No (QUIT JUN 2017) Tobacco Use: Yes (1/2 PPD) Substance Use: No Allergies-Medications (Allergen,Severity, Reaction): Coded Allergies: No Known Allergies (Unverified Adverse Reaction, Unknown, 11/27/17) Reported Meds & Prescriptions Reported Meds & Active Scripts Active Macrobid (Nitrofurantoin Monoh/Nitrofur Macro) 100 Mg Cap 100 Mg PO BID Reported Vitamins Tablet (Pnv No.95/Ferrous Fum/Folic AC) 28 Mg Iron-800 Mcg Tablet 1 Cap PO DAILY Review of Systems Except as stated in HPI: all other systems reviewed are Neg General / Constitutional: No: Fever Eyes: No: Visual changes HENT: No: Headaches Cardiovascular: No: Chest Pain or Discomfort Respiratory: No: Shortness of Breath Gastrointestinal: Positive: Abdominal Pain, No: Nausea, Vomiting, Diarrhea Genitourinary: Positive: Pelvic Pain, Discharge, No: Dysuria Musculoskeletal: No: Pain Skin: No Rash Neurologic: No: Weakness Psychiatric: No: Depression Endocrine: No: Polydipsia Hematologic/Lymphatic: No: Easy Bruising Physical Exam Narrative General: The patient is a well-developed well-nourished female in no acute distress. Head and Neck exam: Head is normocephalic atraumatic. Eyes: EOMI, pupils are equal round and reactive to light. Nose: Midline septum with pink mucous membranes Mouth: Dentition unremarkable. Moist mucus membranes. Posterior oropharynx is not erythematous. No tonsillar hypertrophy. Uvula midline. Airway patent. Neck: No palpable lymphadenopathy. No nuchal rigidity. No thyromegaly. Cardiovascular: Regular rate and rhythm without murmurs, gallops, or rubs. Lungs: Clear to auscultation bilaterally. No wheezes, rhonchi, or rales. Abdomen: Soft, without tenderness to palpation in all 4 quadrants of the abdomen. No guarding, rebound, or rigidity. Normal bowel sounds are audible. No tenderness on palpation of McBurney's point. Negative Marr sign. Extremities: No clubbing, cyanosis, or edema. 2+ pulses in all 4 extremities. No calf tenderness on palpation peer Back: No costovertebral angle tenderness to palpation. Neurologic Exam: Grossly nonfocal. Skin Exam: No rash noted. Intact skin that is warm and dry. Gynecologic exam: The patient was placed in the dorsal lithotomy position. Her external genitalia were examined. She had no evidence of rash or lesions. The speculum was placed into her vagina and the cervix was identified. She had a physiologic appearing clear white discharge. No cervical friability. On Bimanual exam: she has no cervical motion tenderness. No adnexal tenderness or prominence noted on palpation. No uterine tenderness, however uterus is palpated to be enlarged consistent with . Data Data Last Documented VS Vital Signs Date Time Temp Pulse Resp B/P (MAP) Pulse Ox O2 Delivery O2 Flow Rate FiO2 11/27/17 21:34 71 11/27/17 21:02 98.4 18 113/77 (89) 97 Orders Orders Beta Hcg (Quant/Titer) (11/27/17 21:36) Complete Blood Count With Diff (11/27/17 21:36) Comprehensive Metabolic Panel (11/27/17 21:36) Gc And Chlamydia Pcr (11/27/17 21:36) Complete Rh (11/27/17 21:36) Wet Prep Profile (11/27/17 21:36) Urinalysis - C+S If Indicated (11/27/17 21:36) Iv Access Insert/Monitor (11/27/17 21:36) Ecg Monitoring (11/27/17 21:36) Sodium Chlor 0.9% 1000 Ml Inj (Ns 1000 M (11/27/17 21:36) Ed Urine Pregnancytest Poc (11/27/17 21:36) Labs Laboratory Tests Test 11/27/17 21:40 11/27/17 22:15 White Blood Count 7.2 TH/MM3 Red Blood Count 4.06 MIL/MM3 Hemoglobin 12.8 GM/DL Hematocrit 37.1 % Mean Corpuscular Volume 91.2 FL Mean Corpuscular Hemoglobin 31.6 PG Mean Corpuscular Hemoglobin Concent 34.7 % Red Cell Distribution Width 12.5 % Platelet Count 302 TH/MM3 Mean Platelet Volume 7.2 FL Neutrophils (%) (Auto) 62.4 % Lymphocytes (%) (Auto) 31.3 % Monocytes (%) (Auto) 5.7 % Eosinophils (%) (Auto) 0.2 % Basophils (%) (Auto) 0.4 % Neutrophils # (Auto) 4.5 TH/MM3 Lymphocytes # (Auto) 2.2 TH/MM3 Monocytes # (Auto) 0.4 TH/MM3 Eosinophils # (Auto) 0.0 TH/MM3 Basophils # (Auto) 0.0 TH/MM3 CBC Comment DIFF FINAL Differential Comment Urine Color YELLOW Urine Turbidity CLOUDY Urine pH 6.5 Urine Specific [place] 1.020 Urine Protein NEG mg/dL Urine Glucose (UA) NEG mg/dL Urine Ketones NEG mg/dL Urine Occult Blood NEG Urine Nitrite NEG Urine Bilirubin NEG Urine Urobilinogen LESS THAN 2.0 MG/DL Urine Leukocyte Esterase TRACE Urine RBC 1 /hpf Urine WBC 1 /hpf Urine Squamous Epithelial Cells 8 /hpf Urine Amorphous Sediment MOD Urine Bacteria FEW /hpf Urine Mucus FEW /lpf Microscopic Urinalysis Comment CULT NOT INDICATED Blood Urea Nitrogen 10 MG/DL Creatinine 0.46 MG/DL Random Glucose 76 MG/DL Total Protein 6.6 GM/DL Albumin 3.2 GM/DL Calcium Level 8.5 MG/DL Alkaline Phosphatase 58 U/L Aspartate Amino Transf (AST/SGOT) 12 U/L Alanine Aminotransferase (ALT/SGPT) 13 U/L Total Bilirubin 0.3 MG/DL Sodium Level 140 MEQ/L Potassium Level 3.7 MEQ/L Chloride Level 106 MEQ/L Carbon Dioxide Level 23.3 MEQ/L Anion Gap 11 MEQ/L Estimat Glomerular Filtration Rate 168 ML/MIN Human Chorionic Gonadotropin, Quant 60765 MIU/ML Clue Cells (Wet Prep) NONE SEEN Vaginal Trichomonas (Wet Prep) NONE SEEN Vaginal Yeast (Wet Prep) NONE SEEN MDM Medical Decision Making Medical Screen Exam Complete: Yes Emergency Medical Condition: Yes Medical Record Reviewed: Yes Differential Diagnosis Cervicitis, versus vaginitis, versus round ligament pain, versus miscarriage, versus dehydration with cramping, versus cystitis Narrative Course During the course of the patient's emergency department visit, the patient's history, examination, and differential diagnosis were reviewed with the patient. The patient was placed on a clinical research monitor with oximetry and frequent blood pressure monitoring. The patient had IV access obtained and blood work sent for analysis. The patient was initially provided normal saline 1 L IV fluid bolus. The patient's laboratory studies were reviewed and remarkable for a blood type that is O+. CBC within normal limits, CMP is remarkable for creatinine of 0.46 , AST 12, quantitative beta-hCG is 22,627. Urinalysis shows trace leukocyte esterase few bacteria, wet prep is negative. A bedside ultrasound was done by ne that revealed heart activity with a heart rate in the 150s with an active fetus. Urinalysis revealed bacteriuria. The patient will be given a prescription for Macrobid. The patient is resting comfortably and feels better, is alert and in no distress. The patient's results and examination findings were discussed with the patient. The repeat examination is unremarkable and benign. The history, exam, diagnostic testing, and current condition do not suggest any significant pathology to warrant further testing, continued ED treatment, admission, or surgical evaluation at this point. The vital signs have been stable. The patient does not have uncontrollable pain, intractable vomiting, or other significant symptoms. The patient's condition is stable and appropriate for discharge. The patient will pursue further outpatient evaluation with a primary care physician or other designated or consulting physician as indicated in the discharge instructions. The patient expressed understanding and was agreeable with this plan. Procedures Procedure Narrative Emergency Department Pelvic ultrasound was performed with patient consent. The curvilinear probe was used in the transverse and sagittal views within the suprapubic region revealing a single intrauterine . heart rate was 158. Diagnosis Primary Impression: Abdominal pain affecting Referrals: [facility] 2 days Med/Other Pt SpecificInfo: Prescription(s) given Scripts Nitrofurantoin Monohydrate Macrocrystals (Macrobid) 100 Mg Cap 100 MG PO BID for Infection, #14 CAP 0 Refills Prov: Flores Martinez MD 11/27/17 Disposition: DISCHARGE HOME Condition: Stable Flores Martinez MD November 27, 2017 21:53
[2017-11-27 22:04] LABS: AUTOMATED NEUTROPHIL # 4.5 TH/MM3 (1.8-7.7); BASOPHIL % 0.4 % (0.0-2.0); EOSINOPHIL % 0.2 % (0.0-4.0); HEMATOCRIT 37.1 % (35.0-46.0); HEMOGLOBIN 12.8 GM/DL (11.6-15.3); LYMPH % 31.3 % (9.0-44.0); LYMPHOCYTE # 2.2 TH/MM3 (1.0-4.8); MEAN CELL VOLUME 91.2 FL (80.0-100.0); MEAN CORPUSCULAR HEMOGLOBIN 31.6 PG (27.0-34.0); MEAN CORPUSCULAR HGB CONC 34.7 % (32.0-36.0); MEAN PLATELET VOLUME 7.2 FL (7.0-11.0); MONO % 5.7 % (0.0-8.0); MONOCYTE # 0.4 TH/MM3 (0-0.9); NEUT % 62.4 % (16.0-70.0); PLATELET COUNT 302 TH/MM3 (150-450); RED BLOOD COUNT 4.06 MIL/MM3 (4.00-5.30); RED CELL DISTRIBUTION WIDTH 12.5 % (11.6-17.2); WHITE BLOOD COUNT 7.2 TH/MM3 (4.0-11.0)
[2017-11-27 22:17] LABS: ALBUMIN 3.2 GM/DL (3.4-5.0); ALT (GPT) 13 U/L (10-53); AST (GOT) 12 U/L (15-37); BICARBONATE 23.3 MEQ/L (21.0-32.0); BLOOD UREA NITROGEN 10 MG/DL (7-18); CALCIUM 8.5 MG/DL (8.5-10.1); CHLORIDE 106 MEQ/L (98-107); CREATININE 0.46 MG/DL (0.50-1.00); GLOMERULAR FILTRATION RATE 168 ML/MIN (>89); GLUCOSE,RANDOM 76 MG/DL (74-106); SODIUM (NA) 140 MEQ/L (136-145)
[2017-11-27 22:19] LABS: BACTERIA, URINE FEW /hpf; BILIRUBIN, URINE NEG (NEG); BLOOD, URINE NEG (NEG); GLUCOSE,URINE NEG (NEG); KETONE, URINE NEG (NEG); MUCUS URINE FEW /lpf (OCC); NITRITE,URINE NEG (NEG); PH, URINE 6.5 (5.0-8.5); SQUAMOUS EPITHELIAL CELL URINE 8 /hpf (0-5); URINE COLOR YELLOW (YELLW/STRAW); URINE LEUKOCYTE ESTERASE TRACE (NEG)
[2017-11-27 22:20] LABS: AMORPHOUS SEDIMENT, URINE MOD
[2017-11-27 22:34] LABS: ALKALINE PHOSPHATASE 58 U/L (45-117); TOTAL BILIRUBIN ADULT 0.3 MG/DL (0.2-1.0); TOTAL PROTEIN 6.6 GM/DL (6.4-8.2)
[2017-11-27] MEDS ORDERED: MACR100C2 PO (23:12)
== END 2017-11-27 23:49 | disposition home or self-care (01) ==
LOC: NEPC 20:51
DX: O26.892 Other specified pregnancy related conditions, second trimester (principal); R10.9 Unspecified abdominal pain; Z3A.15 15 weeks gestation of pregnancy
CPT/HCPCS: 80053; 81001; 84702; 84703; 85025; 86901; 87210; 87491; 87591; 99284; J7030